=== PATIENT | female | born 1995 | race American Indian/Alaskan Native ===

== ENCOUNTER 2016-12-07 08:15 | Emergency (ER) | payer OTHER ==
[2016-12-07 09:03] LABS: Basophils % (Auto) 0.2 % (0.0-1.8); Eosinophils % (Auto) 0.5 % (0.0-4.3); Hematocrit 23.7 % (30.3-42.9); Hemoglobin 7.8 gm/dl (10.1-14.3); Mean Corpuscular HGB Conc 33 % (30-34); Mean Corpuscular Hemoglobin 28 pg (28-32); Mean Corpuscular Volume 85 fl (79-97); Platelet Count 410 K/mm3 (140-440); Red Blood Count 2.79 M/mm3 (3.65-5.03); Red Cell Distribution Width 15.5 % (13.2-15.2); White Blood Count 8.1 K/mm3 (4.5-11.0)
[2016-12-07 09:06] LABS: Bacteria,Urine 1+ /HPF (Negative); Bilirubin,Urine NEG (Negative); Blood,Urine LG (Negative); Ketones,Urine NEG (Negative); Leukocyte Esterase,Urine LG (Negative); Mucus,Urine FEW /HPF; Nitrite,Urine NEG (Negative); Protein,Urine <15 mg/dL mg/dL (Negative); Urobilinogen,Urine < 2.0 mg/dL (<2.0)
[2016-12-07 09:10] LABS: Alanine Aminotransferase 13 units/L (7-56); Albumin 3.7 g/dL (3.9-5); Albumin/Globulin Ratio 1.1 %; Alkaline Phosphatase 70 units/L (35-129); Anion Gap 16 mmol/L; Blood Urea Nitrogen 8 mg/dL (7-17); Calcium 8.5 mg/dL (8.4-10.2); Carbon Dioxide 24 mmol/L (22-30); Chloride 102.1 mmol/L (98-107); Glucose 97 mg/dL (65-100); Potassium 4.2 mmol/L (3.6-5.0); Sodium 138 mmol/L (137-145); Total Protein 7.2 g/dL (6.3-8.2)
[2016-12-07 09:20] VITALS: BP 123/68
--- NOTE | 2016-12-07 10:08 | Ultrasound Report ---
Pelvic and transvaginal sonography: History: Vaginal bleeding during . Findings: Uterus measures 9.8 x 5.8 x 8.3 cm. Endometrial thickness 19.3 mm. Heterogeneous complex endometrium with increased vascularity. No distinct mass is identified. No intrauterine gestation. Right ovary 3.4 x 1.8 x 2.6 cm. Left ovary 3.4 x 1.8 x 1.9 cm. Impression: No intrauterine gestation. Findings as detailed above.
--- NOTE | 2016-12-07 10:16 | Emergency Department Report ---
ED HPI - General Chief complaint: Vaginal Bleeding Stated complaint: MISCARRIAGE Time Seen by Provider: 12/07/16 10:07 Source: patient Mode of arrival: Ambulatory Limitations: No Limitations - History of Present Illness Initial comments: 21-year-old female A0 here with complaint of vaginal bleeding that started last night. Patient has not had a menstrual cycle since August and took a recent test which was faintly positive. She started having bleeding 2 days ago. No lightheadedness is no dizziness no abdominal pain. No history of ectopic . MD Complaint: vaginal bleeding Radiation: none Severity: mild Improves with: none Worsens with: none Associated symptoms: vaginal bleeding. denies: nausea/vomiting, vaginal discharge, abdominal pain, dysuria, headache, vision changes, malaise, dysparuenia, rash, seizure, shortness of breath, syncope, weakness, other - Related Data Previous Rx's Medication Instructions Recorded Last Taken Type HYDROcodone/APAP 5-325 [[place] 1 each PO Q6HR PRN #20 tablet 11/10/13 Unknown Rx 5/325] Ibuprofen [Motrin] 800 mg PO TID PRN #60 tablet 11/10/13 Unknown Rx Ferrous Sulfate [Feosol 325 MG tab] 325 mg PO BID #60 tablet 11/11/13 Unknown Rx Vit#98/Ferrous Fum/FA 1 each PO QDAY #30 tablet 11/11/13 Unknown Rx [Kpn Tablet] Allergies Allergy/AdvReac Type Severity Reaction Status Date / Time No Known Allergies Allergy Verified 12/07/16 08:19 ED Review of Systems ROS: Stated complaint: MISCARRIAGE Other details as noted in HPI Comment: All other systems reviewed and negative Constitutional: denies: chills, fever Eyes: denies: eye pain, eye discharge, vision change ENT: denies: ear pain, throat pain Respiratory: denies: cough, shortness of breath, wheezing Cardiovascular: denies: chest pain, palpitations Endocrine: no symptoms reported Gastrointestinal: denies: abdominal pain, nausea, diarrhea Genitourinary: denies: urgency, dysuria, discharge Musculoskeletal: denies: back pain, joint swelling, arthralgia Skin: denies: rash, lesions Neurological: denies: headache, weakness, paresthesias Psychiatric: denies: anxiety, depression Hematological/Lymphatic: denies: easy bleeding, easy bruising ED Past Medical Hx - Past Medical History Previous Medical History?: No Hx Hypertension: No Hx Diabetes: No Hx Deep Vein Thrombosis: No Hx Renal Disease: No Hx Sickle Cell Disease: No Hx Seizures: No Hx Asthma: No Hx HIV: No - Family History Family history: no significant - Social History Smoking Status: Current Every Day Smoker Substance Use Type: None - Medications Home Medications: Home Medications Medication Instructions Recorded Confirmed Last Taken Type HYDROcodone/APAP 5-325 [[place] 1 each PO Q6HR PRN #20 tablet 11/10/13 Unknown Rx 5/325] Ibuprofen [Motrin] 800 mg PO TID PRN #60 tablet 11/10/13 Unknown Rx Ferrous Sulfate [Feosol 325 MG tab] 325 mg PO BID #60 tablet 11/11/13 Unknown Rx Vit#98/Ferrous Fum/FA 1 each PO QDAY #30 tablet 11/11/13 Unknown Rx [Kpn Tablet] ED Physical Exam - General Limitations: No Limitations General appearance: alert, in no apparent distress, obese - Head Head exam: Present: atraumatic, normocephalic - Eye Eye exam: Present: normal appearance - ENT ENT exam: Present: mucous membranes moist - Neck Neck exam: Present: normal inspection - Respiratory Respiratory exam: Present: normal lung sounds bilaterally. Absent: respiratory distress - Cardiovascular Cardiovascular Exam: Present: regular rate, normal rhythm. Absent: systolic murmur, diastolic murmur, rubs, gallop - GI/Abdominal GI/Abdominal exam: Present: soft, normal bowel sounds - Extremities Exam Extremities exam: Present: normal inspection - Back Exam Back exam: Present: normal inspection - Neurological Exam Neurological exam: Present: alert, oriented X3 - Psychiatric Psychiatric exam: Present: normal affect, normal mood - Skin Skin exam: Present: warm, dry, intact, normal color. Absent: rash ED Course Vital Signs 12/07/16 12/07/16 12/07/16 08:20 09:14 09:16 Temperature 98.2 F 98.5 F Pulse Rate 83 77 Respiratory 20 16 16 Rate Blood Pressure 138/84 Blood Pressure 123/68 [Left] O2 Sat by Pulse 100 98 98 Oximetry ED Medical Decision Making - Lab Data Result diagrams: 12/07/16 08:30 12/07/16 08:30 Laboratory Results - last 24 hr 12/07/16 12/07/16 12/07/16 08:30 08:30 08:30 WBC 8.1 RBC 2.79 L Hgb 7.8 L Hct 23.7 L MCV 85 MCH 28 MCHC 33 RDW 15.5 H Plt Count 410 Lymph % (Auto) 20.1 [place] % (Auto) 4.3 Eos % (Auto) 0.5 Baso % (Auto) 0.2 Lymph # 1.6 [place] # 0.3 Eos # 0.0 Baso # 0.0 Seg Neutrophils % 74.9 H Seg Neutrophils # 6.1 Sodium 138 Potassium 4.2 Chloride 102.1 Carbon Dioxide 24 Anion Gap 16 BUN 8 Creatinine 0.8 Estimated GFR > 60 BUN/Creatinine Ratio 10.00 Glucose 97 Calcium 8.5 Total Bilirubin 0.20 AST 14 ALT 13 Alkaline Phosphatase 70 Total Protein 7.2 Albumin 3.7 L Albumin/Globulin Ratio 1.1 HCG, Qual HCG, Quant 659.4 H Urine Color Urine Turbidity Urine pH Ur Specific [place] Urine Protein Urine Glucose (UA) Urine Ketones Urine Blood Urine Nitrite Urine Bilirubin Urine Urobilinogen Ur Leukocyte Esterase Urine WBC (Auto) Urine RBC (Auto) U Epithel Cells (Auto) Urine Bacteria (Auto) Urine Mucus 12/07/16 12/07/16 08:30 08:38 WBC RBC Hgb Hct MCV MCH MCHC RDW Plt Count Lymph % (Auto) [place] % (Auto) Eos % (Auto) Baso % (Auto) Lymph # [place] # Eos # Baso # Seg Neutrophils % Seg Neutrophils # Sodium Potassium Chloride Carbon Dioxide Anion Gap BUN Creatinine Estimated GFR BUN/Creatinine Ratio Glucose Calcium Total Bilirubin AST ALT Alkaline Phosphatase Total Protein Albumin Albumin/Globulin Ratio HCG, Qual Positive HCG, Quant Urine Color Yellow Urine Turbidity Clear Urine pH 6.0 Ur Specific [place] 1.009 Urine Protein <15 mg/dl Urine Glucose (UA) Neg Urine Ketones Neg Urine Blood Lg Urine Nitrite Neg Urine Bilirubin Neg Urine Urobilinogen < 2.0 Ur Leukocyte Esterase Lg Urine WBC (Auto) 49.0 H Urine RBC (Auto) 72.0 U Epithel Cells (Auto) 1.0 Urine Bacteria (Auto) 1+ Urine Mucus Few - Medical Decision Making 21-year-old female here with slight vaginal bleeding. Beta hCG 654 with an ultrasound that does not show any intrauterine . Given this is below the discriminatory zone and would not expect the ultrasound to be confirmatory at this point. She has no abdominal pain she's noted lightheadedness and dizziness. She will need to follow-up with her OB for repeat labs and an ultrasound in 48 hours. We discussed her low blood count should she have any symptoms of lightheadedness and dizziness she should return to the emergency department for further evaluation. Her MCV is normal therefore this may not be a chronic process but since she does not have any symptoms of anemia and I do not plan to further intervene at this point. Portions of this chart were dictated with dictation software. There may be dictation errors contained within this note. Critical care attestation.: If time is entered above; I have spent that time in minutes in the direct care of this critically ill patient, excluding procedure time. ED Disposition Clinical Impression: Threatened miscarriage, Anemia Disposition: DC- TO HOME OR SELFCARE Is pt being admited?: No Condition: Stable Instructions: Threatened Miscarriage (ED) Additional Instructions: Please follow-up with your senior catering sales manager within 48 hours for repeat blood work and ultrasound. Should she not be able to follow-up in that timeframe please return to the emergency department for follow-up Referrals: PRIMARY MD DEBI [Primary Care Provider] - 3-5 Days
== END 2016-12-07 12:12 | disposition home or self-care (01) ==
LOC: ED 08:15
DX: O20.0 Threatened abortion (principal); D64.9 Anemia, unspecified; F17.200 Nicotine dependence, unspecified, uncomplicated; Z3A.01 Less than 8 weeks gestation of pregnancy
CPT/HCPCS: 36415; 76801; 76817; 80053; 81001; 84702; 84703; 85025